=== PATIENT | male | born 1965 | race Caucasian/White ===

== ENCOUNTER 2021-01-23 11:45 | Outpatient (CLI) | payer BC, SELFPAY ==
[2021-01-23 12:33] LABS: Kit Draw Collected
== END 2021-01-23 11:46 | disposition home or self-care (01) ==
PROVIDERS: PCP Family Medicine
DX: R53.82 Chronic fatigue, unspecified (principal); K90.41 Non-celiac gluten sensitivity; F06.8 Other specified mental disorders due to known physiological condition
CPT/HCPCS: 36415

== ENCOUNTER 2022-03-25 14:55 | Outpatient (CLI) | payer BC, SELFPAY ==
--- NOTE | ~2022-03-25 | XR_ITS ---
XR knee LT min 4V DATE: 03/25/2022 15:11 INDICATION: Left knee pain TECHNIQUE: [place], lateral and standing AP and PA views COMPARISON: None FINDINGS: There is evidence of mild suprapatellar knee joint effusion. Mild loss of medial compartment joint space. No fracture or dislocation, periosteal reaction or bone destruction. No radiopaque intra-articular lo ose body or chondrocalcinosis. IMPRESSION: Mild suprapatellar knee joint effusion Mild loss of height of medial compartment joint space Reviewed, dictated and finalized at location A.
== END 2022-03-25 14:56 | disposition home or self-care (01) ==
PROVIDERS: PCP Family Medicine; Visit Provider Family Medicine
DX: M25.562 Pain in left knee (principal); M25.462 Effusion, left knee
CPT/HCPCS: 73564

== ENCOUNTER 2022-03-30 14:51 | Outpatient (CLI) | payer BC, SELFPAY ==
--- NOTE | ~2022-03-30 | US_ITS ---
EXAMINATION: US soft tissue buttock RT DATE: 03/30/2022 15:32 INDICATION: Right buttock foreign body. TECHNIQUE: Multiple grayscale and Doppler ultrasound images of the right buttock were obtained. COMPARISON: None FINDINGS: In the right buttock, there is mixed echogenicity deep to a skin defect, likely inflammatio n around a tract that contains gas. Deeper in the subcutaneous fat, there is echogenic material with posterior shadowing. There is hypoechogenicity in the fat around this area, consistent with inflammat ion. IMPRESSION: 1. Inflammation with drainage tract in right buttock. Echogenic foci in the subcutaneous fat in this area may be a foreign body and/or gas, which can have a similar appearance by ultrasound. Reviewed, dictated and finalized at location A. IMPRESSION: 1. Inflammation with drainage tract in right buttock. Echogenic foci in the sub cutaneous fat in this area may be a foreign body and/or gas, which can have a s imilar appearance by ultrasound.
== END 2022-03-30 14:52 | disposition home or self-care (01) ==
PROVIDERS: PCP Family Medicine; Visit Provider Family Medicine
DX: L02.91 Cutaneous abscess, unspecified (principal)
CPT/HCPCS: 76705

== ENCOUNTER 2022-03-31 16:14 | Outpatient (CLI) | payer BC, SELFPAY ==
--- NOTE | ~2022-03-31 | CT_ITS ---
EXAMINATION: CT pelvis w con INDICATION: Right buttock abscess, possible retained gauze TECHNIQUE: Computed tomographic images of the pelvis were obtained after the administration of 100 cc of Omnipaque 350 intravenous contrast. The dose-length product (DLP) was 218.47 mGy-cm. Automated ex posure control and iterative reconstruction technique were employed. COMPARISON: None available FINDINGS: There is an approximately 7.1 x 1.9 cm abscess of the right buttock. No definite retained f oreign material is seen in the abscess cavity. There are no pathologically enlarged pelvic lymph node s. There are small umbilical and left inguinal hernias containing fat. IMPRESSION: 1. Subcutaneous abscess of the right buttock without definite retained foreign material identified. Reviewed, dictated and finalized at location A.
== END 2022-03-31 16:15 | disposition home or self-care (01) ==
PROVIDERS: PCP Family Medicine; Visit Provider Family Medicine
DX: L02.91 Cutaneous abscess, unspecified (principal); M79.5 Residual foreign body in soft tissue
CPT/HCPCS: 72193; Q9967

== ENCOUNTER 2022-08-16 12:49 | Outpatient (CLI) | payer BC, SELFPAY ==
[2022-08-18 23:06] LABS: H pylori, Urea Breath NOT DETECTED (NOT DETECTED)
== END 2022-08-16 12:50 | disposition home or self-care (01) ==
PROVIDERS: PCP Family Medicine; Visit Provider Family Medicine
DX: R14.0 Abdominal distension (gaseous) (principal)
CPT/HCPCS: 83013

== ENCOUNTER 2022-11-04 14:16 | Outpatient (CLI) | payer BC, SELFPAY ==
--- NOTE | ~2022-11-04 | XR_ITS ---
EXAMINATION: XR abdomen obstructive series DATE: 11/04/2022 14:31 INDICATION: Bloating and constipation TECHNIQUE: Supine and upright views of the abdomen. FINDINGS: No prior studies for comparison. The visualized lung parenchyma is normal.. There is a nonobstructive bowel gas pattern. Gas and stool are seen throughout the colon to the level of the rectum. There is no free air. There are calcifica tions in the right upper abdomen which may represent gallstones. IMPRESSION: 1. No acute abdominal abnormality. 2: Calcifications right upper abdomen, most likely gallstones. Reviewed, dictated and finalized at location A. DING MAINTENANCE ENGINEER
== END 2022-11-04 14:17 | disposition home or self-care (01) ==
LOC: ANHBWCIMG 14:17
PROVIDERS: PCP Family Medicine; Visit Provider Family Medicine
DX: R14.0 Abdominal distension (gaseous) (principal)
CPT/HCPCS: 74019

== ENCOUNTER 2022-11-23 07:11 | Outpatient (CLI) | payer BC, SELFPAY ==
[2022-11-23 20:19] LABS: Alanine Aminotransferase 46 U/L (6-50); Albumin Level 4.5 g/dL (3.5-5.1); Alkaline Phosphatase 59 U/L (38-126); Aspartate Amino Transferase 54 U/L (17-59); Bilirubin,Total 0.7 mg/dL (0.2-1.3)
[2022-11-24 00:21] LABS: Hepatitis B Surface Antigen Negative (Negative)
[2022-11-24 00:27] LABS: HAV RESULT Negative (Negative); Hepatitis B Core IgM Result Negative (Negative)
[2022-11-24 00:58] LABS: Hepatitis C Virus Antibody Negative (Negative)
[2022-11-26 20:16] LABS: Gliadin AB, IgG <1.0 U/mL (<15.0); TTG IGA AB <1.0 U/mL (<15.0)
[2022-11-26 21:10] LABS: Tissue Transglutaminase IgA Ab <1.0 U/mL (<15.0)
== END 2022-11-23 07:12 | disposition home or self-care (01) ==
PROVIDERS: PCP Family Medicine; Visit Provider Family Medicine
DX: R14.0 Abdominal distension (gaseous) (principal); G47.00 Insomnia, unspecified
CPT/HCPCS: 36415; 80074; 80076; 83516; 84443; 86003; 86255

== ENCOUNTER 2022-12-03 09:43 | Outpatient (CLI) | payer BC, SELFPAY ==
--- NOTE | ~2022-12-03 | US_ITS ---
Abdominal Sonogram: Real-time sonographic imaging of the abdomen was performed. Clinical History: Abdominal distention Findings: The visualized liver appears normal with no evidence of mass lesion or bile duct dilatatio n. Main portal vein demonstrates normal direction of flow. The spleen is normal in size without evide nce of focal lesion. The gallbladder is well distended, and appears normal with no evidence of galls tone or wall thickening. The common bile duct measures 2 mm. The visualized pancreas, aorta, and IVC are unremarkable. The right kidney measures 10.0 cm in length and the left kidney measures 12.7 cm. There is no hydronephrosis or renal calculus. Impression: No significant abnormality seen. Reviewed, dictated and finalized at [facility] [place]. RTING DEVELOPER Impression: No significant abnormality seen.
== END 2022-12-03 09:44 | disposition home or self-care (01) ==
PROVIDERS: PCP Family Medicine; Visit Provider Family Medicine
DX: R14.0 Abdominal distension (gaseous) (principal); R53.83 Other fatigue
CPT/HCPCS: 76700

== ENCOUNTER 2023-02-14 09:17 | Outpatient (CLI) | payer BC, SELFPAY ==
[2023-02-14 12:10] LABS: Kit Draw Collected
== END 2023-02-14 09:18 | disposition home or self-care (01) ==
PROVIDERS: PCP Family Medicine
DX: M04.9 Autoinflammatory syndrome, unspecified (principal); A04.9 Bacterial intestinal infection, unspecified; K90.41 Non-celiac gluten sensitivity; K58.9 Irritable bowel syndrome, unspecified
CPT/HCPCS: 36415